=== PATIENT | male | born 1985 | race Caucasian/White ===

== ENCOUNTER 2024-01-11 16:45 | Emergency (ER) | payer BC ==
[2024-01-11 16:59] VITALS: BP 140/84; PULSE 99; RESP 18; TEMP 98; BMI 31.4
[2024-01-11] MEDS ORDERED: ACETAMINOPHEN 325 MG TABLET (FP) ONE (17:17)
[2024-01-11] MEDS: ACETAMINOPHEN 325 MG TABLET (FP) PO ONE (17:20)
== END 2024-01-11 18:50 | disposition home or self-care (01) ==
LOC: JER 16:45
DX: G44.209 Tension-type headache, unspecified, not intractable (principal); M54.2 Cervicalgia; S06.0X0A Concussion without loss of consciousness, initial encounter; W21.02XA Struck by soccer ball, initial encounter; Y93.66 Activity, soccer
CPT/HCPCS: 70450-TC; 99284-25